=== PATIENT | female | born 1940 | race Caucasian/White ===

== ENCOUNTER 2020-11-01 23:36 | Inpatient (IN) | payer OTHER ==
[~2020-11-01] VITALS: Ht 160 cm; Wt 59.4 kg
--- NOTE | 2020-11-01 23:50 | NUR ---
PT BIB RA FROM HOME C/O SOB 90% ON ROOM AIR, 92% ON NC, 97% ON 15LPM VIA NRB MASK. BREATHING IS EVEN BUT LABORED, AND RAPID. AAO X 4, WITH DAUGHTER AT BEDSIDE. SEEN AND EXAMINED BY DR CHRISTINA. PT ATTACHED TO MONITOR AND PULSE OX, CURRENT SATURATION AT 100% ON BIPAP AT 100% FIO2, GABI RT AT BEDSIDE. WILL CONTINUE TO MONITOR AND CARRY OUT MD ORDERS.
[2020-11-02] VITALS (30 sets, daily range): BP systolic 103–157; BP diastolic 51–78
[2020-11-02] MEDS ORDERED: methylPREDNISolone SOD SUCC 125 MG/2ML VIAL IV ONE
[2020-11-02] MEDS ORDERED: ALBUTEROL FS 2.5 MG/3 ML VIAL.NEB CONTNEB ONE
[2020-11-02] MEDS ORDERED: IPRATROPIUM NEB FS 0.5 MG/2.5 ML AMPUL.NEB NEB ONE
--- NOTE | 2020-11-02 | NUR ---
RT NOTE PT BROUGHT IN FROM HOME IN RESPIRATORY DISTRESS. PT PLACED ON BIPAP PER MD CHRISTINA ORDER. CONT TX GIVEN AND ABG DRAWN.
[2020-11-02] MEDS ORDERED: methylPREDNISolone SOD SUCC 125 MG/2ML VIAL ONE (00:06)
[2020-11-02] MEDS ORDERED: ALBUTEROL FS 2.5 MG/3 ML VIAL.NEB ONE (00:07)
[2020-11-02] MEDS ORDERED: IPRATROPIUM NEB FS 0.5 MG/2.5 ML AMPUL.NEB ONE (00:07)
[2020-11-02 00:15] LABS: BASOPHILS # (AUTO) 0.1 K/uL (0.0-0.2); BASOPHILS % (AUTO) 0.8 % (0.0-2.0); EOSINOPHILS % (AUTO) 1.8 % (0.0-6.0); HEMATOCRIT 36 % (33-45); HEMOGLOBIN 11.6 g/dL (11.5-14.8); LYMPHOCYTES # (AUTO) 2.3 K/uL (0.8-4.8); LYMPHOCYTES % (AUTO) 22.5 % (20.0-44.0); MEAN CORPUSCULAR HGB CONC 32 g/dl (31.0-36.0); MEAN CORPUSCULAR VOLUME 86 fL (82-100); MONOCYTES # (AUTO) 0.4 K/uL (0.1-1.30); MONOCYTES % (AUTO) 4.3 % (2.0-12.0); NEUTROPHILS # (AUTO) 7.2 K/uL (1.8-8.9); NEUTROPHILS % (AUTO) 70.6 % (43.0-81.0); PLATELET COUNT (AUTO) 306 K/uL (150-450); RED BLOOD CELL COUNT(AUTO) 4.16 MIL/uL (4.0-5.2); WHITE BLOOD COUNT (AUTO) 10.2 K/uL (4.3-11.0)
--- NOTE | 2020-11-02 00:37 | NUR ---
TROP 0.529 LACTIC 2.1
[2020-11-02 00:41] LABS: CALCIUM, SERUM 8.6 mg/dL (8.5-10.1); CARBON DIOXIDE 22 mmol/L (21-32); CHLORIDE 104 mmol/L (98-107); CREATININE 1.4 mg/dL (0.6-1.3); GLUCOSE 254 mg/dL (74-106); SODIUM SERUM 138 mmol/L (136-145); UREA NITROGEN, BLOOD 25 mg/dL (7-18)
[2020-11-02 00:52] LABS: ALANINE AMINOTRANSFERASE 19 U/L (12-78); ALBUMIN 3.6 g/dL (3.4-5.0); ALKALINE PHOSPHATASE 67 U/L (46-116); ASPARTATE AMINOTRANSFERASE 17 U/L (15-37); BILIRUBIN,DIRECT 0.1 mg/dL (0.0-0.2); BILIRUBIN,TOTAL 0.4 mg/dL (0.2-1.0); TOTAL PROTEIN, SERUM 7.3 g/dL (6.4-8.2)
[2020-11-02] MEDS ORDERED: IV NS 0.9% 0 ML IV ONE (00:52)
[2020-11-02] MEDS ORDERED: IOHEXOL-350 100 ML VIAL IV ONE (00:52)
[2020-11-02] MEDS ORDERED: CT SWABBABLE VALVE TRANS SET 1 EA INFUS.SET MC ONE (00:52)
[2020-11-02] MEDS ORDERED: ASPIRIN 325 MG TABLET ONE (00:59)
[2020-11-02] MEDS ORDERED: ASPIRIN 325 MG TABLET PO ONE (01:00)
[2020-11-02] MEDS ORDERED: CEFTRIAXONE 1GM BAG (ER ONLY) 1 GM/50 ML PIGGYBACK IV ONE (01:30)
[2020-11-02] MEDS ORDERED: ENOXAPARIN SODIUM 60 MG/0.6 ML DISP.SYRIN SQ ONE (01:30)
[2020-11-02] MEDS ORDERED: AZITHROMYCIN 500 MG in IV D5W 250 ML IV ONE (01:30)
[2020-11-02] MEDS ORDERED: FUROSEMIDE 40 MG/4 ML VIAL IV ONE (01:30)
--- NOTE | 2020-11-02 01:34 | NUR ---
called house sup for ICU bed
[2020-11-02] MEDS ORDERED: CEFTRIAXONE 1GM BAG (ER ONLY) 50 ML IV ONE (01:41)
[2020-11-02] MEDS ORDERED: FUROSEMIDE 40 MG/4 ML VIAL ONE (01:42)
--- NOTE | 2020-11-02 01:50 | NUR ---
icu bed: 258
[2020-11-02] MEDS ORDERED: ENOXAPARIN SODIUM 80 MG/0.8 ML DISP.SYRIN SQ ONE (01:56)
[2020-11-02] MEDS ORDERED: AZITHROMYCIN 500 MG VIAL ONE (01:57)
[2020-11-02 02:10] LABS: ABG BASE EXCESS -2.5 mmol/L; ABG PCO2 33.9 mmHg (35.0-45.0); ABG PH 7.418 (7.350-7.450); ABG PO2 329.3 mmHg (75.0-100.0); AaDO2 349.8 mmHg; COHb 0.1 % (0.5-1.5); MetHb 0.6 % (0.0-1.5); O2Hb 98.3 % (94.0-97.0); SITE, ABG Right Brachial; VENT MODE, BG ST 15/5 16 100%
--- NOTE | 2020-11-02 02:51 | NUR ---
PT WAS WEANED OFF FROM FROM BIPAP AND REMAINED ON CLOSE MONITORING. HOLDING O2 SAT OF 94-95% ON O2 AT 2LPM VIA NC. WILL CONT TO MONITOR
[2020-11-02] MEDS ORDERED: ZOLPIDEM TARTRATE 5 MG TABLET PO PRN (03:00)
[2020-11-02] MEDS ORDERED: ONDANSETRON HCL/PF 4 MG/2 ML VIAL IVP PRN (03:00)
[2020-11-02] MEDS ORDERED: ACETAMINOPHEN 325 MG TABLET PO PRN (03:00)
[2020-11-02] MEDS ORDERED: MAGNESIUM HYDROXIDE 30 ML UDC PO PRN (03:00)
--- NOTE | 2020-11-02 03:15 | NUR ---
PATIENT TRANSFERRED UNDER ACLS
--- NOTE | 2020-11-02 03:16 | NUR ---
RN ADMITTING NOTE RECEIVED PATIENT FROM ER VIA GURNEY ACCOMPANIED BY 2 ER STAFF AND TRANSFERRED TO BED VIA 2 PERSON ASSIST. PT IS AO X 4, WOLOF SPEAKING, SPEAKS/UNDERSTANDS BASIC AMHARIC, IN NO SIGN OF ACUTE DISTRESS, RESPIRATIONS EVEN AND UNLABORED, SATURATION AT 96% ON 2LPM VIA NC. COMPREHENSIVE PHYSICAL ASSESSMENT AND PATIENT CARE DONE. NO SKIN ISSUES NOTED. NOTED IV LINE AT LAC 20G, PATENT AND FLUSHING WELL, NO S/S OF INFECTION OR INFILTRATION NOTED. PATIENT REFUSED INSERTION OF A SECOND IV LINE. REFUSED DVT PUMPS. SAFETY MEASURES AND ISOLATION PRECAUTION IN PLACE, CALL LIGHT WITHIN REACH OF PATIENT, BED ON LOWEST POSITION, SIDE RAILS UP X 2. WILL CONTINUE MONITOR AND ASSESS THROUGHOUT THE SHIFT. WILL CARRY OUT MD ORDERS ACCORDINGLY.
--- NOTE | 2020-11-02 03:20 | NUR ---
RN NOTE TELEPHONE CALL FROM LAB, SPOKE WITH BATSHEVA, RELAYED CRITICAL VALUE OF 4.[address] CASTILLO WAS NOTIFIED, ORDER RECEIVED FOR NS 500 ML AT 200 ML/HR ONCE. CHAIN MENDEREVE AMARO.
[2020-11-02] MEDS ORDERED: IV NS 0.9% 500 ML IV ONE (04:00)
[2020-11-02 04:29] LABS: BASOPHILS % (AUTO) 0.1 % (0.0-2.0); HEMATOCRIT 35 % (33-45); HEMOGLOBIN 11.1 g/dL (11.5-14.8); LYMPHOCYTES # (AUTO) 0.2 K/uL (0.8-4.8); LYMPHOCYTES % (AUTO) 2.1 % (20.0-44.0); MEAN CORPUSCULAR HGB CONC 32 g/dl (31.0-36.0); MEAN CORPUSCULAR VOLUME 87 fL (82-100); MONOCYTES % (AUTO) 0.4 % (2.0-12.0); NEUTROPHILS # (AUTO) 10.9 K/uL (1.8-8.9); NEUTROPHILS % (AUTO) 97.4 % (43.0-81.0); PLATELET COUNT (AUTO) 266 K/uL (150-450); RED BLOOD CELL COUNT(AUTO) 3.99 MIL/uL (4.0-5.2); WHITE BLOOD COUNT (AUTO) 11.2 K/uL (4.3-11.0)
--- NOTE | 2020-11-02 04:46 | NUR ---
PT IS ON 2L O2 SAT 97%. PT IS AWAKE NO RESP DISTRESS NOTED. ABG DONE PER ROSIE CASTILLO.
[2020-11-02 04:47] LABS: CALCIUM, SERUM 8.5 mg/dL (8.5-10.1); CARBON DIOXIDE 21 mmol/L (21-32); CHLORIDE 98 mmol/L (98-107); CREATININE 1.5 mg/dL (0.6-1.3); MAGNESIUM 1.9 mg/dL (1.8-2.4); PHOSPHORUS 3.2 mg/dL (2.5-4.9); POTASSIUM 3.8 mmol/L (3.5-5.1); SODIUM SERUM 135 mmol/L (136-145); UREA NITROGEN, BLOOD 26 mg/dL (7-18)
[2020-11-02 04:50] LABS: CHOLESTEROL 178 mg/dL (<200); HDL CHOLESTEROL 34 mg/dL (40-60); LDL 118 mg/dL (0-99); TRIGLYCERIDES 101 mg/dL (30-150)
[2020-11-02 04:59] LABS: GLUCOSE 350 mg/dL (74-106)
--- NOTE | 2020-11-02 05:00 | NUR ---
RN NOTE TELEPHONE CALL FROM LAB, SPOKE WITH RENZO, RELAYED CRITICAL LAB VALUE OF 350 FOR GLUCOSE, AND 0.[address] CASTILLO WAS NOTIFIED, ACKNOWLEDGED WITH NO NEW ORDERS AT THIS TIME. RN TELEHEALTH NIKKY AMARO.
--- NOTE | 2020-11-02 07:18 | NUR ---
RN NOTE TELEPHONE CALL TO DAUGHTER PUJA SWENSON AT [phone], ADVISED HER OF PENDING PCR RESULT, NO VISITORS WILL BE ALLOWED UNTIL PCR RESULTED.
--- NOTE | 2020-11-02 07:19 | NUR ---
RN NOTE PT REMAINS IN ROOM, SATURATION 98% ON 2L VIA NC. REPORT GIVEN TO MIKAYLA PRADO FOR CONTINUATION OF CARE.
--- NOTE | 2020-11-02 07:30 | NUR ---
RN OPENING NOTES Patient is received in bed, alert and oriented. On 2 lpm via nasal cannula with 02 saturation of 98%. No c/o pain or discomfort. Breathing even and unlabored. HOB kept elevated. Patient noted with iv to left forearm, saline lock and flushed well. Will continue to monitor. Call light with in reach.
[2020-11-02] MEDS ORDERED: LOSA100T31 PO (09:10)
[2020-11-02] MEDS ORDERED: OMEP20CA15 PO (09:10)
[2020-11-02] MEDS ORDERED: METO25TA4 PO (09:10)
[2020-11-02] MEDS ORDERED: GLIM1TAB18 PO (09:10)
[2020-11-02] MEDS ORDERED: LINA145C PO (09:10)
[2020-11-02] MEDS ORDERED: FENO48TA PO (09:10)
[2020-11-02] MEDS ORDERED: DICY10CA13 PO (09:10)
[2020-11-02] MEDS ORDERED: ASPI-1169 PO (09:10)
[2020-11-02] MEDS: PANTOPRAZOLE 40 MG TABLET.DR PO SCH (09:21)
[2020-11-02] MEDS: POTASSIUM CHLORIDE 20 MEQ TAB.PRT.SR PO SCH ×3 (09:22→15:18)
[2020-11-02] MEDS: FUROSEMIDE 40 MG/4 ML VIAL IV SCH ×3 (09:22→17:34)
[2020-11-02] MEDS: ATORVASTATIN 10 MG TABLET PO SCH (09:22)
[2020-11-02 10:04] LABS: THYROID STIMULATING HORMONE 0.544 uIU/mL (0.358-3.74)
[2020-11-02] MEDS ORDERED: LABETALOL 20 MG/4 ML VIAL IV PRN (11:00)
[2020-11-02] MEDS ORDERED: hydrALAZINE HCL IV 20 MG VIAL IV PRN (11:00)
[2020-11-02] MEDS ORDERED: SODIUM BICARBONATE SYR 50 MEQ/50 ML DISP.SYRIN IV STA (16:08)
[2020-11-02 16:17] LABS: BILIRUBIN,DIRECT 0.1 mg/dL (0.0-0.2); BILIRUBIN,TOTAL 0.5 mg/dL (0.2-1.0)
[2020-11-02] MEDS ORDERED: DEXTROSE 50%-WATER 50 ML DISP.SYRIN IV PRN (16:30)
[2020-11-02] MEDS: FERROUS SULFATE (325 MG) 325 MG/TAB TABLET PO SCH (17:34)
[2020-11-02] MEDS: BLOOD SUGAR DIAGNOSTIC 1 EACH STRIP IN SCH ×2 (17:35→22:31)
[2020-11-02] MEDS: INSULIN REGULAR, HUMAN 100 UNIT/ML 3 ML VIAL SQ PRN ×2 (17:59→22:31)
[2020-11-02] MEDS ORDERED: IBUPROFEN 200 MG TABLET PO PRN (18:00)
[2020-11-02] MEDS ORDERED: IBUPROFEN 400 MG TABLET PO PRN (18:30)
[2020-11-02 18:40] LABS: CALCIUM, SERUM 9.2 mg/dL (8.5-10.1); CARBON DIOXIDE 19 mmol/L (21-32); CHLORIDE 100 mmol/L (98-107); CREATININE 1.5 mg/dL (0.6-1.3); GLUCOSE 254 mg/dL (74-106); POTASSIUM 4.3 mmol/L (3.5-5.1); SODIUM SERUM 138 mmol/L (136-145); UREA NITROGEN, BLOOD 28 mg/dL (7-18)
[2020-11-02 18:46] LABS: ALANINE AMINOTRANSFERASE 20 U/L (12-78); ALBUMIN 3.6 g/dL (3.4-5.0); ALKALINE PHOSPHATASE 45 U/L (46-116); ASPARTATE AMINOTRANSFERASE 40 U/L (15-37); BILIRUBIN,TOTAL 0.5 mg/dL (0.2-1.0); TOTAL PROTEIN, SERUM 7.3 g/dL (6.4-8.2)
--- NOTE | 2020-11-02 19:29 | NUR ---
RN CLOSING NOTES Patient is alert and oriented. Resting currently in bed. Patient given ibuprofen for generalized pain 07/29 . Patient is on 2 liters via n/c with o2 sat of 98%. lasix given during shift per md orders. Lactic acid and troponin results were both relayed to MD Healy and Hospitalist. Sodium bicarb given as ordered. Patient is currently in stable condition. Assisted with bed ruiz x5 during shift. No bm during shift. HOB kept elevated. Bed is in lowest and locked position. Call light within reach. Endorsed to next shift to monitor patient's pain.
--- NOTE | 2020-11-02 19:30 | NUR ---
RN NOTES Received patient in bed, AOX3, continues on 2L/min via NC saturating 95% this time. breathing normal no sob noted. Denies any pain or discomfort at this time. HOB elevated. abdomen soft and non distended. IV site LFA saline lock patent and flushed well. Patient is continent with B&B. All safety measures in place, call light within reach. Will cont to monitor for elenita.
[2020-11-03] VITALS (26 sets, daily range): BP systolic 80–123; BP diastolic 26–86
[2020-11-03] MEDS ORDERED: CEFTRIAXONE 1 G in IV D5W 50 ML IV SCH (01:30)
[2020-11-03] MEDS ORDERED: AZITHROMYCIN 500 MG in IV D5W 250 ML IV SCH (02:00)
[2020-11-03] MEDS: ENOXAPARIN SODIUM 60 MG/0.6 ML DISP.SYRIN SQ SCH (02:18)
[2020-11-03 04:24] LABS: HEMATOCRIT 31 % (33-45); HEMOGLOBIN 10.2 g/dL (11.5-14.8); LYMPHOCYTES # (AUTO) 1.1 K/uL (0.8-4.8); LYMPHOCYTES % (AUTO) 5.3 % (20.0-44.0); MEAN CORPUSCULAR HGB CONC 32 g/dl (31.0-36.0); MEAN CORPUSCULAR VOLUME 85 fL (82-100); MONOCYTES # (AUTO) 1.5 K/uL (0.1-1.30); MONOCYTES % (AUTO) 7.1 % (2.0-12.0); NEUTROPHILS # (AUTO) 18.3 K/uL (1.8-8.9); NEUTROPHILS % (AUTO) 87.6 % (43.0-81.0); PLATELET COUNT (AUTO) 271 K/uL (150-450); RED BLOOD CELL COUNT(AUTO) 3.68 MIL/uL (4.0-5.2)
[2020-11-03 04:50] LABS: ALANINE AMINOTRANSFERASE 23 U/L (12-78); ALBUMIN 3.3 g/dL (3.4-5.0); ALKALINE PHOSPHATASE 49 U/L (46-116); ASPARTATE AMINOTRANSFERASE 57 U/L (15-37); BILIRUBIN,TOTAL 0.4 mg/dL (0.2-1.0); CARBON DIOXIDE 30 mmol/L (21-32); CHLORIDE 100 mmol/L (98-107); CREATININE 1.7 mg/dL (0.6-1.3); GLUCOSE 139 mg/dL (74-106); MAGNESIUM 1.9 mg/dL (1.8-2.4); PHOSPHORUS 3.7 mg/dL (2.5-4.9); SODIUM SERUM 139 mmol/L (136-145); TOTAL PROTEIN, SERUM 6.6 g/dL (6.4-8.2); UREA NITROGEN, BLOOD 39 mg/dL (7-18)
--- NOTE | 2020-11-03 07:09 | NUR ---
RN NOTES patient rested well through out the shift. no s/s of acute distress. respiration even non labored. IV site LFA saline lock patent and flushed well. Patient is continent with B&B. All safety measures in place, call light within reach. Endorse to am nurse for elenita.
--- NOTE | 2020-11-03 07:30 | NUR ---
OPENING NOTE: REPORT RECEIVED FROM LORIE PRADO. PT ALERT OX4, COOPERATIVE. PT USES BED PAIN, ABLE TO REPOSITION SELF WITHOUT DIFFICULTY. PT ON ROOM AIR. PT CHECKED ON HOURLY AND PRN BY NURSING STAFF.
[2020-11-03] MEDS: BLOOD SUGAR DIAGNOSTIC 1 EACH STRIP IN SCH ×4 (08:01→21:43)
[2020-11-03] MEDS: FERROUS SULFATE (325 MG) 325 MG/TAB TABLET PO SCH (08:18)
[2020-11-03] MEDS: ATORVASTATIN 10 MG TABLET PO SCH (08:18)
[2020-11-03] MEDS: PANTOPRAZOLE 40 MG TABLET.DR PO SCH (08:18)
[2020-11-03] MEDS: CARVEDILOL 3.125 MG TABLET PO SCH ×2 (09:00→21:00)
[2020-11-03] MEDS ORDERED: ASPIRIN 81 MG TAB.CHEW PO SCH (09:00)
[2020-11-03] MEDS: FUROSEMIDE 40 MG/4 ML VIAL IV SCH ×3 (09:30→17:24)
--- NOTE | 2020-11-03 11:44 | NUR ---
PER DR AJ, HOLD PT'S LUNCH TODAY FOR POSSIBLE HEART CATH TODAY AND THORACENTESIS.
[2020-11-03] MEDS: DICYCLOMINE HCL 10 MG CAPSULE PO SCH ×3 (12:53→21:00)
[2020-11-03] MEDS: INSULIN REGULAR, HUMAN 100 UNIT/ML 3 ML VIAL SQ PRN ×2 (12:54→21:44)
--- NOTE | 2020-11-03 13:19 | NUR ---
PT'S DAUGHTER PUJA STATED SHE DOES NOT WANT ANGIOGRAM OR THORACENTESIS AT THIS TIME. DR. LINO AND DR BERNABE NOTIFIED. THORACENTESIS HAS ALREADY BEEN CANCELLED BY RADIOLOGIST.
[2020-11-03] MEDS ORDERED: SOD FERRIC GLUC 125 MG in IV NS 0.9% 100 ML IV SCH (14:00)
[2020-11-03] MEDS: DOCUSATE SODIUM 100 MG CAPSULE PO SCH (17:24)
--- NOTE | 2020-11-03 19:16 | NUR ---
PHOTOCOPYING MACHINE OPERATOR OPENING NOTES: Rec'd pt in bed, A&Ox4, primarily Croatian speaking but understands and speaks little German. SR on tele monitor. No IV access at this time as it came out during ambulation. Will restart new IV. Pt able to ambulate to bedside commode as needed. Safety measures in place. No pain reported at this time. Will continue to monitor.
--- NOTE | 2020-11-03 19:21 | NUR ---
END OF SHIFT NOTE: CT OF CHEST/ABD/PELVIS DONE PER MD ORDERS, UA SENT, BLOOD CULTURES SENT PER MD ORDERS. PT AND PT'S DAUGHTER REFUSED THORACENTESIS AND HEART CATH TODAY, MDS NOTIFIED. PT INDEPENDENT TO COMMODE WITHOUT DIFFICULTY. PT CHECKED ON HOURLY AND PRN BY NURSING STAFF.
--- NOTE | 2020-11-03 20:15 | NUR ---
HEALTHCARE ADMINISTRATIVE ASSISTANT NOTE: Pt is refusing new IV access. Educated pt on importance of having IV access and pt still refusing. Charge nurse Ed made aware.
[2020-11-03] MEDS ORDERED: POLYETHYLENE GLYCOL 3350 17 GM POWD.PACK PO SCH (22:00)
[2020-11-04] VITALS (12 sets, daily range): BP systolic 92–130; BP diastolic 37–86
[2020-11-04] MEDS: ENOXAPARIN SODIUM 60 MG/0.6 ML DISP.SYRIN SQ SCH (01:30)
[2020-11-04 05:19] LABS: BASOPHILS # (AUTO) 0.1 K/uL (0.0-0.2); BASOPHILS % (AUTO) 0.5 % (0.0-2.0); EOSINOPHILS % (AUTO) 2.6 % (0.0-6.0); HEMATOCRIT 35 % (33-45); HEMOGLOBIN 11.3 g/dL (11.5-14.8); LYMPHOCYTES # (AUTO) 2.5 K/uL (0.8-4.8); LYMPHOCYTES % (AUTO) 19.7 % (20.0-44.0); MEAN CORPUSCULAR HGB CONC 32 g/dl (31.0-36.0); MEAN CORPUSCULAR VOLUME 85 fL (82-100); MONOCYTES # (AUTO) 0.9 K/uL (0.1-1.30); MONOCYTES % (AUTO) 7.2 % (2.0-12.0); NEUTROPHILS # (AUTO) 8.8 K/uL (1.8-8.9); PLATELET COUNT (AUTO) 267 K/uL (150-450); RED BLOOD CELL COUNT(AUTO) 4.12 MIL/uL (4.0-5.2); WHITE BLOOD COUNT (AUTO) 12.6 K/uL (4.3-11.0)
[2020-11-04 06:00] LABS: ALANINE AMINOTRANSFERASE 19 U/L (12-78); ALBUMIN 3.5 g/dL (3.4-5.0); ALKALINE PHOSPHATASE 51 U/L (46-116); ASPARTATE AMINOTRANSFERASE 36 U/L (15-37); BILIRUBIN,TOTAL 0.5 mg/dL (0.2-1.0); CALCIUM, SERUM 9.2 mg/dL (8.5-10.1); CARBON DIOXIDE 36 mmol/L (21-32); CHLORIDE 100 mmol/L (98-107); CREATININE 1.5 mg/dL (0.6-1.3); GLUCOSE 96 mg/dL (74-106); PHOSPHORUS 4.6 mg/dL (2.5-4.9); POTASSIUM 3.9 mmol/L (3.5-5.1); SODIUM SERUM 141 mmol/L (136-145); TOTAL PROTEIN, SERUM 6.8 g/dL (6.4-8.2); UREA NITROGEN, BLOOD 46 mg/dL (7-18)
[2020-11-04 06:20] LABS: BILIRUBIN,URINE NEGATIVE (NEGATIVE); COLOR,URINE YELLOW (YELLOW); LEUKOCYTE ESTERASE ,URINE NEGATIVE (NEGATIVE); NITRITE, URINE NEGATIVE (NEGATIVE); PROTEIN,URINE NEGATIVE (NEGATIVE); UGLUCOSE NEGATIVE (NEGATIVE); UROBILINOGEN,URINE 0.2 EU/dL (0.2)
--- NOTE | 2020-11-04 06:45 | NUR ---
FORMING MILL OPERATOR NOTE: Pt gave self bed bath this am. Tolerated well.
--- NOTE | 2020-11-04 07:00 | NUR ---
RN NOTES RECEIVED PT ON BED, A/Ox4, ON RA , NO DISTRESS NOTED, ON TELE SR HR IN 80'S , PT REFUSED IV ACCESS , SR UP x3, CALL LIGHT WITHIN EASY REACH, BED LOCKED AND IN LOWEST POSITION, CONTINUE TO MONITOR.
[2020-11-04] MEDS: DOCUSATE SODIUM 100 MG CAPSULE PO SCH (08:27)
[2020-11-04] MEDS: BLOOD SUGAR DIAGNOSTIC 1 EACH STRIP IN SCH (08:27)
[2020-11-04] MEDS: PANTOPRAZOLE 40 MG TABLET.DR PO SCH (08:28)
[2020-11-04] MEDS: ATORVASTATIN 10 MG TABLET PO SCH (08:28)
[2020-11-04] MEDS: DICYCLOMINE HCL 10 MG CAPSULE PO SCH (08:28)
[2020-11-04] MEDS: CARVEDILOL 3.125 MG TABLET PO SCH (08:29)
[2020-11-04] MEDS ORDERED: METOPROLOL SUCCINATE 25 MG TAB.SR.24H PO SCH (09:00)
[2020-11-04] MEDS ORDERED: GLIMEPIRIDE 1 MG TABLET PO SCH (09:00)
[2020-11-04] MEDS ORDERED: Linaclotide (Linzess) 145 MCG PO SCH (09:00)
[2020-11-04] MEDS ORDERED: ASPIRIN 81 MG TAB.CHEW PO SCH (09:00)
[2020-11-04] MEDS ORDERED: OMEPRAZOLE 20 MG CAPSULE.DR PO SCH (09:00)
[2020-11-04] MEDS ORDERED: Fenofibrate 48 MG TABLET PO SCH (09:00)
[2020-11-04] MEDS ORDERED: LOSARTAN POTASSIUM 50 MG TABLET PO SCH (09:00)
[2020-11-04] MEDS ORDERED: FURO-144 PO ×2 (10:15→11:32)
[2020-11-04] MEDS ORDERED: CARV3.122 PO ×2 (10:15→11:32)
[2020-11-04] MEDS ORDERED: ATOR10TA PO (11:32)
--- NOTE | 2020-11-04 11:36 | NUR ---
RN NOTES DISCHARGE INSTRUCTION GIVEN TO PT AND HER DAUGHTER, VERBALIZED UNDERSTANDING , PT LEFT THE FLOOR TO MAIN ENTRANCE ACCOMPANIED BY DAUGHTER AND STAFF MEMBER IN STABLE CONDITION .
== END 2020-11-04 11:36 | disposition home or self-care (01) | DRG 280 ==
LOC: ER 23:36 → ICU 11-02 02:36
PROVIDERS: ADMIT Internal Medicine; ATTEND Internal Medicine
DX: I13.0 Hypertensive heart and chronic kidney disease with heart failure and stage 1 through stage 4 chronic kidney disease, or unspecified chronic kidney disease (principal); J96.01 Acute respiratory failure with hypoxia; I21.A1 Myocardial infarction type 2; I50.23 Acute on chronic systolic (congestive) heart failure; N17.9 Acute kidney failure, unspecified; E11.22 Type 2 diabetes mellitus with diabetic chronic kidney disease; E11.65 Type 2 diabetes mellitus with hyperglycemia; I25.10 Atherosclerotic heart disease of native coronary artery without angina pectoris; Z95.1 Presence of aortocoronary bypass graft; D50.9 Iron deficiency anemia, unspecified; I25.5 Ischemic cardiomyopathy; I35.1 Nonrheumatic aortic (valve) insufficiency; K80.20 Calculus of gallbladder without cholecystitis without obstruction; N18.9 Chronic kidney disease, unspecified; N28.1 Cyst of kidney, acquired; Z20.822 Contact with and (suspected) exposure to COVID-19
CPT/HCPCS: 36415; 36600; 71045-TC; 71250-TC; 80048-TC; 80053-TC; 80061-TC; 80076-TC; 82247-TC; 82248-TC; 82728-TC; 82803-TC; 82962-TC; 83540-TC; 83605-TC; 83735-TC; 83880; 84100-TC; 84439-TC; 84443-TC; 84484-TC; 85025-TC; 85730-TC; 87040-TC; 87081-TC; 93307-TC; C9803; G0378; J0456; J0696; J1650; J1815; J1940; J2405; J2916; J2930; J3490; J7030; J7040; J7050; J7060; Q9967; U0003